=== PATIENT | male | born 1990 | race Caucasian/White ===

== ENCOUNTER 2016-11-24 22:20 | Emergency (ER) | payer OTHER ==
[~2016-11-24 22:20] MED LIST: AMOXICILLIN PO; CLEOCIN PO; MAGIC MOUTHWASH PO; MUCINEX DM1 TAB.SR . PO; PENICILLIN V P500 MG PO; SUBOXONE 2 MG-1 EACH SL; VOLTAREN75 MG PO; ZOVIRAX800 MG PO
== END 2016-11-24 22:22 | disposition left against medical advice (07) ==
LOC: CED 22:20
DX: Z53.21 Procedure and treatment not carried out due to patient leaving prior to being seen by health care provider (principal)

== ENCOUNTER 2016-11-24 23:46 | Emergency (ER) | payer OTHER ==
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
== END 2016-11-25 01:44 | disposition home or self-care (01) ==
LOC: SED 23:46
DX: S01.81XA Laceration without foreign body of other part of head, initial encounter (principal); V43.92XA Unspecified car occupant injured in collision with other type car in traffic accident, initial encounter
CPT/HCPCS: 12011; 70450; 70486; 72125; 90471; 90715; 99284